=== PATIENT | male | born 1950 | race Caucasian/White ===

== ENCOUNTER 2018-01-24 06:34 | Inpatient (IN) ==
[2018-01-23 16:02] LABS: Basophils % 0.5 % (0.0-0.8); Eosinophils # 0.3 10*3/uL (0.0-0.87); Eosinophils % 4.3 % (0.00-10.9); Hematocrit 42.5 VOL% (42.0-52.0); Hemoglobin 13.5 GM/DL (14.0-18.0); Immature Granulocytes % 0.4 %; Immature Granulocytes Absolute 0.03 #; Lymphocytes # 1.5 10*3/uL (1.4-4.0); Lymphocytes % 20.5 % (21.2-54.2); Mean Corpuscular HGB Conc 31.8 GM/DL (32-36); Mean Corpuscular Hemoglobin 29 PG (27-34); Mean Corpuscular Volume 91.2 FL (87-102); Monocytes # 0.7 10*3/uL (0.11-0.8); Monocytes % 8.8 % (1.7-12.7); Neutrophils # 4.8 10*3/uL (1.4-7.4); Neutrophils % 65.5 % (38.7-73.9); Platelet Count 127 T/CUMM (130-400); Red Blood Count 4.66 MC/CUMM (3.8-5.5); Red Cell Distribution Width 13.2 % (9.3-17.3); White Blood Count 7.4 T/CUMM (4-12)
[2018-01-23 16:10] LABS: PT Patient Result 10.3 SECS
[2018-01-23 16:25] LABS: Alanine Aminotransferase 43 U/L (16-61); Albumin 3.8 G/DL (3.4-5.0); Alkaline Phosphatase 125 U/L (45-117); Aspartate Amino Transferase 55 U/L (0-37); Bilirubin,Total < 0.39 MG/DL (0.2-1.0); Blood Urea Nitrogen 19 MG/DL (7-18); Calcium 8.2 MG/DL (8.5-10.1); Glucose 86 MG/DL (74-106); Osmolality,Calculated 283.1 MOS/KG (273-304); Potassium 4.6 MMOL/L (3.5-5.1); Sodium 142 MMOL/L (136-145); Total Protein 7.1 G/DL (6.4-8.3)
[~2018-01-24 06:34] MED LIST: ALVIMOPAN 12 MG CAPSULE PO ONE; ERTAPENEM 1,000 MG in SODIUM CHLORIDE 0.9% 100 ML IV ONE
[2018-01-24] MEDS ORDERED: ALVIMOPAN 12 MG CAPSULE ONE (06:56)
[2018-01-24] MEDS ORDERED: FAMOTIDINE 20 MG TABLET PO ONE (07:05)
[2018-01-24] MEDS ORDERED: FAMOTIDINE 20 MG TABLET ONE (07:18)
[2018-01-24] MEDS ORDERED: LACTATED RINGERS 1,000 ML IV SCH (07:30)
[2018-01-24] MEDS ORDERED: TISSUE ADHESIVE 1 EACH APPLICATOR TOP ONE (08:21)
[2018-01-24] MEDS ORDERED: SUGAMMADEX 200 MG/2 ML VIAL IV ONE (10:01)
[2018-01-24] MEDS ORDERED: PROPOFOL 200 MG/20 ML VIAL IV ONE (11:10)
[2018-01-24] MEDS ORDERED: SEVOFLURANE 1 UNIT/15 MINUTE INH ONE (11:10)
[2018-01-24] MEDS ORDERED: MIDAZOLAM 2 MG/2 ML VIAL ONE (11:10)
[2018-01-24] MEDS ORDERED: GLYCOPYRROLATE 0.4 MG/2 ML VIAL ONE (11:11)
[2018-01-24] MEDS ORDERED: ONDANSETRON 4 MG/2 ML VIAL ONE (11:11)
[2018-01-24] MEDS ORDERED: KETOROLAC 30 MG/1 ML VIAL ONE (11:11)
[2018-01-24] MEDS ORDERED: DEXAMETHASONE 10 MG/1 ML VIAL ONE (11:11)
[2018-01-24] MEDS ORDERED: ePHEDrine 50 MG/ML AMP ONE (11:11)
[2018-01-24] MEDS ORDERED: PHENYLEPHRINE 1 MG/10 ML SYRINGE IV ONE (11:12)
[2018-01-24] MEDS ORDERED: LACTATED RINGERS 1,000 ML IV ONE (11:12)
[2018-01-24] MEDS ORDERED: ACETAMINOPHEN 1,000 MG/100 ML VIAL IV ONE (11:12)
[2018-01-24] MEDS ORDERED: ROCURONIUM 100 MG/10 ML VIAL IV ONE (11:12)
[2018-01-24] MEDS ORDERED: NEOSTIGMINE 10 MG/10 ML VIAL ONE (11:12)
[2018-01-24] MEDS ORDERED: CYANOCOBALAMIN 1000 MCG/1 ML VIAL SUBCUT SCH (11:57)
[2018-01-24] MEDS ORDERED: PROMETHAZINE 25 MG/1 ML VIAL IM PRN (11:57)
[2018-01-24] MEDS ORDERED: ERYTHROMYCIN BASE 500 MG PO SCH (11:57)
[2018-01-24] MEDS ORDERED: HYDROmorphone 2 MG/1 ML VIAL IV PRN (11:57)
[2018-01-24] MEDS: LACTATED RINGERS 1,000 ML IV SCH ×2 (12:36→21:38)
[2018-01-24] MEDS: KETOROLAC 15 MG/1 ML VIAL IV SCH ×3 (12:38→23:40)
[2018-01-24 14:00] LABS: Basophils % 0.2 % (0.0-0.8); Eosinophils % 0.1 % (0.00-10.9); Hemoglobin 13.5 GM/DL (14.0-18.0); Immature Granulocytes % 0.5 %; Immature Granulocytes Absolute 0.07 #; Lymphocytes # 0.5 10*3/uL (1.4-4.0); Mean Corpuscular HGB Conc 32.1 GM/DL (32-36); Mean Corpuscular Hemoglobin 29 PG (27-34); Mean Corpuscular Volume 90.7 FL (87-102); Mean Platelet Volume 12.4 FL (9.6-12.0); Monocytes # 0.3 10*3/uL (0.11-0.8); Neutrophils # 14.5 10*3/uL (1.4-7.4); Neutrophils % 94.2 % (38.7-73.9); Platelet Count 185 T/CUMM (130-400); Red Blood Count 4.63 MC/CUMM (3.8-5.5); Red Cell Distribution Width 13.3 % (9.3-17.3); White Blood Count 15.4 T/CUMM (4-12)
[2018-01-24 14:15] LABS: Calcium 8.4 MG/DL (8.5-10.1); Potassium 4.4 MMOL/L (3.5-5.1)
[2018-01-24] MEDS ORDERED: hydrALAZINE 20 MG/1 ML VIAL IV PRN (14:33)
[2018-01-24 14:45] LABS: Lymphocytes 4 % (20-55); Platelet Estimate Adequate; Segmented Neutrophils 95 % (50-85); Total Cells Counted 100
[2018-01-24] MEDS: FLUTICASONE 50 MCG NASAL SPRAY 16 GM BOTTLE BOTH NARES SCH (21:35)
[2018-01-24] MEDS: ALVIMOPAN 12 MG CAPSULE PO SCH (21:38)
[2018-01-25 02:48] LABS: Basophils % 0.1 % (0.0-0.8); Hematocrit 35.6 VOL% (42.0-52.0); Hemoglobin 11.6 GM/DL (14.0-18.0); Immature Granulocytes % 0.8 %; Immature Granulocytes Absolute 0.12 #; Lymphocytes # 0.5 10*3/uL (1.4-4.0); Lymphocytes % 3.6 % (21.2-54.2); Mean Corpuscular HGB Conc 32.6 GM/DL (32-36); Mean Corpuscular Hemoglobin 29 PG (27-34); Mean Corpuscular Volume 89.4 FL (87-102); Mean Platelet Volume 11.7 FL (9.6-12.0); Monocytes # 0.7 10*3/uL (0.11-0.8); Monocytes % 4.6 % (1.7-12.7); Neutrophils # 13.6 10*3/uL (1.4-7.4); Neutrophils % 90.9 % (38.7-73.9); Platelet Count 246 T/CUMM (130-400); Red Blood Count 3.98 MC/CUMM (3.8-5.5); Red Cell Distribution Width 13.2 % (9.3-17.3)
[2018-01-25] MEDS: LACTATED RINGERS 1,000 ML IV SCH ×2 (03:39→12:01)
[2018-01-25 04:09] LABS: Calcium 8.2 MG/DL (8.5-10.1); Potassium 4.5 MMOL/L (3.5-5.1)
[2018-01-25 05:35] LABS: Band Neutrophils 1 % (0-10); Lymphocytes 5 % (20-55); Segmented Neutrophils 91 % (50-85); Total Cells Counted 100
[2018-01-25 05:37] LABS: Hypochromasia 1+; Microcytosis Slight; Platelet Estimate Normal
[2018-01-25 05:38] LABS: Giant Platelets Few
[2018-01-25] MEDS: KETOROLAC 15 MG/1 ML VIAL IV SCH ×4 (05:40→23:41)
[2018-01-25] MEDS: ALVIMOPAN 12 MG CAPSULE PO SCH ×2 (10:35→20:43)
[2018-01-25] MEDS: ERYTHROMYCIN BASE 250 MG TABLET PO SCH (10:36)
[2018-01-25] MEDS: FLUTICASONE 50 MCG NASAL SPRAY 16 GM BOTTLE BOTH NARES SCH ×2 (10:38→20:43)
[2018-01-25] MEDS: ENOXAPARIN 40 MG/0.4 ML SYRINGE SUBCUT SCH (10:39)
[2018-01-25] MEDS: ONDANSETRON 4 MG/2 ML VIAL IV PRN (10:45)
[2018-01-25] MEDS: MONTELUKAST 10 MG TABLET PO SCH (10:48)
[2018-01-25] MEDS: PANTOPRAZOLE 40 MG TABLET PO SCH (10:48)
[2018-01-25] MEDS: METOPROLOL SUCCINATE XL 25 MG TABLET PO SCH (17:17)
[2018-01-26 03:52] LABS: Basophils % 0.1 % (0.0-0.8); Hematocrit 32.9 VOL% (42.0-52.0); Hemoglobin 10.7 GM/DL (14.0-18.0); Immature Granulocytes % 0.6 %; Immature Granulocytes Absolute 0.09 #; Lymphocytes # 1.1 10*3/uL (1.4-4.0); Lymphocytes % 8.2 % (21.2-54.2); Mean Corpuscular HGB Conc 32.5 GM/DL (32-36); Mean Corpuscular Hemoglobin 29 PG (27-34); Mean Corpuscular Volume 88.9 FL (87-102); Monocytes # 1.2 10*3/uL (0.11-0.8); Monocytes % 8.3 % (1.7-12.7); Neutrophils # 11.5 10*3/uL (1.4-7.4); Neutrophils % 82.8 % (38.7-73.9); Platelet Count 231 T/CUMM (130-400); Red Cell Distribution Width 13.9 % (9.3-17.3); White Blood Count 13.9 T/CUMM (4-12)
[2018-01-26] MEDS: KETOROLAC 15 MG/1 ML VIAL IV SCH ×4 (05:40→23:15)
[2018-01-26] MEDS: MONTELUKAST 10 MG TABLET PO SCH (09:57)
[2018-01-26] MEDS: METOPROLOL SUCCINATE XL 25 MG TABLET PO SCH (09:57)
[2018-01-26] MEDS: ALVIMOPAN 12 MG CAPSULE PO SCH ×2 (09:58→20:58)
[2018-01-26] MEDS: PANTOPRAZOLE 40 MG TABLET PO SCH (09:58)
[2018-01-26] MEDS: ERYTHROMYCIN BASE 250 MG TABLET PO SCH (09:59)
[2018-01-26] MEDS: FLUTICASONE 50 MCG NASAL SPRAY 16 GM BOTTLE BOTH NARES SCH ×2 (10:05→20:59)
[2018-01-26] MEDS: ENOXAPARIN 40 MG/0.4 ML SYRINGE SUBCUT SCH (10:06)
[2018-01-26 12:30] LABS: Hematocrit 32.6 VOL% (42.0-52.0); Hemoglobin 10.3 GM/DL (14.0-18.0)
[2018-01-26] MEDS: ONDANSETRON 4 MG/2 ML VIAL IV PRN ×2 (13:35→18:19)
[2018-01-27 00:55] LABS: Basophils % 0.2 % (0.0-0.8); Eosinophils # 0.2 10*3/uL (0.0-0.87); Eosinophils % 1.3 % (0.00-10.9); Hematocrit 30.7 VOL% (42.0-52.0); Hemoglobin 10.2 GM/DL (14.0-18.0); Immature Granulocytes % 0.5 %; Immature Granulocytes Absolute 0.06 #; Lymphocytes # 1.3 10*3/uL (1.4-4.0); Mean Corpuscular HGB Conc 33.2 GM/DL (32-36); Mean Corpuscular Hemoglobin 30 PG (27-34); Mean Corpuscular Volume 89.2 FL (87-102); Mean Platelet Volume 11.5 FL (9.6-12.0); Monocytes # 1.2 10*3/uL (0.11-0.8); Monocytes % 10.4 % (1.7-12.7); Neutrophils # 9.1 10*3/uL (1.4-7.4); Neutrophils % 76.6 % (38.7-73.9); Platelet Count 202 T/CUMM (130-400); Red Blood Count 3.44 MC/CUMM (3.8-5.5); Red Cell Distribution Width 14.1 % (9.3-17.3); White Blood Count 11.9 T/CUMM (4-12)
[2018-01-27] MEDS: KETOROLAC 15 MG/1 ML VIAL IV SCH (05:34)
[2018-01-27 07:05] VITALS: BP 161/96
[2018-01-27] MEDS: PANTOPRAZOLE 40 MG TABLET PO SCH (08:22)
[2018-01-27] MEDS: ERYTHROMYCIN BASE 250 MG TABLET PO SCH (08:22)
[2018-01-27] MEDS: ENOXAPARIN 40 MG/0.4 ML SYRINGE SUBCUT SCH (08:22)
[2018-01-27] MEDS: ALVIMOPAN 12 MG CAPSULE PO SCH (08:23)
[2018-01-27] MEDS: METOPROLOL SUCCINATE XL 25 MG TABLET PO SCH (08:23)
[2018-01-27] MEDS: FLUTICASONE 50 MCG NASAL SPRAY 16 GM BOTTLE BOTH NARES SCH (08:23)
[2018-01-27] MEDS: MONTELUKAST 10 MG TABLET PO SCH (08:23)
== END 2018-01-27 11:20 | disposition home or self-care (01) | DRG 331 ==
LOC: N.OR 06:34 → N.SDSINP 06:40 → N.3E 10:47
PROVIDERS: ADMIT Surgery; ATTEND Surgery

== ENCOUNTER 2021-11-06 10:52 | Inpatient (IN) ==
[2021-11-06] MEDS ORDERED: ACETAMINOPHEN 325 MG TABLET PO PRN (11:09)
[2021-11-06] MEDS ORDERED: ONDANSETRON 4 MG/2 ML VIAL IV PRN (11:09)
[2021-11-06] MEDS ORDERED: SODIUM CHLORIDE 0.9% 1,000 ML IV PRN (11:12)
[2021-11-06 13:35] LABS: % Iron Saturation 5.8 % (18-50); Ferritin 31.1 ng/mL (26-388)
[2021-11-06] MEDS: PANTOPRAZOLE 40 MG TABLET PO SCH (13:48)
[2021-11-06] MEDS ORDERED: diphenhydrAMINE CAP 25 MG CAPSULE PO PRN (15:14)
[2021-11-06] MEDS ORDERED: OXYMETAZOLINE 0.05% NASAL SPRAY 15 ML BOTTLE BOTH NARES PRN (15:14)
[2021-11-06] MEDS ORDERED: CYANOCOBALAMIN 1000 MCG/1 ML VIAL SUBCUT SCH (15:30)
[2021-11-06] MEDS: FERROUS SULFATE 325 MG TABLET PO SCH (18:24)
[2021-11-06] MEDS ORDERED: FUROSEMIDE 40 MG/4 ML VIAL IV ONE (18:26)
[2021-11-06] MEDS: FLUTICASONE 50 MCG NASAL SPRAY 16 GM BOTTLE BOTH NARES SCH (20:53)
[2021-11-06] MEDS: CLOBETASOL 0.05% CREAM 15 GM TUBE TOP SCH (20:54)
[2021-11-06] MEDS: DOCUSATE SODIUM 100 MG CAPSULE PO SCH (20:54)
[2021-11-06] MEDS: CICLOPIROX 0.77% TOP SCH (20:55)
[2021-11-06 22:33] LABS: Hemoglobin 8.8 GM/DL (14.0-18.0)
[2021-11-07 07:16] LABS: Albumin 3.3 G/DL (3.4-5.0); Bilirubin,Total 0.6 MG/DL (0.20-1.00); Calcium 8.5 MG/DL (8.5-10.1); Potassium 3.8 MMOL/L (3.5-5.1); Total Protein 6.5 G/DL (6.4-8.2)
[2021-11-07 08:08] LABS: Basophils # 0.1 10*3/uL (0.0-0.2); Basophils % 0.6 % (0.0-0.8); Eosinophils # 0.6 10*3/uL (0.0-0.87); Eosinophils % 5.4 % (0.00-10.9); Hematocrit 28.8 VOL% (42.0-52.0); Hemoglobin 8.7 GM/DL (14.0-18.0); Immature Granulocytes % 0.6 %; Immature Granulocytes Absolute 0.06 #; Lymphocytes # 1.6 10*3/uL (1.4-4.0); Lymphocytes % 15.4 % (21.2-54.2); Mean Corpuscular HGB Conc 30.2 GM/DL (32-36); Mean Corpuscular Volume 84.2 FL (87-102); Mean Platelet Volume 9.6 FL (9.6-12.0); Monocytes % 9.3 % (1.7-12.7); Neutrophils % 68.7 % (38.7-73.9); Platelet Count 414 T/CUMM (130-400); Red Blood Count 3.42 MC/CUMM (3.8-5.5); Red Cell Distribution Width 16.9 % (9.3-17.3); White Blood Count 10.6 T/CUMM (4-12)
[2021-11-07] MEDS: LACTATED RINGERS 1,000 ML IV SCH (12:45)
[2021-11-07] MEDS ORDERED: propofoL 200 MG/20 ML VIAL IV ONE (13:48)
[2021-11-07] MEDS ORDERED: LIDOCAINE 2% 5 ML VIAL ONE (13:48)
[2021-11-07] MEDS: FLUTICASONE 50 MCG NASAL SPRAY 16 GM BOTTLE BOTH NARES SCH ×2 (15:00→20:39)
[2021-11-07] MEDS: FERROUS SULFATE 325 MG TABLET PO SCH ×2 (15:01→17:30)
[2021-11-07] MEDS: MONTELUKAST 10 MG TABLET PO SCH (15:01)
[2021-11-07] MEDS: PANTOPRAZOLE 40 MG TABLET PO SCH (15:01)
[2021-11-07] MEDS: TERBINAFINE 250 MG TABLET PO SCH (15:01)
[2021-11-07] MEDS: LORATADINE 10 MG TABLET PO SCH (15:01)
[2021-11-07] MEDS: CITALOPRAM 20 MG TABLET PO SCH (15:01)
[2021-11-07] MEDS: METOPROLOL SUCCINATE XL 25 MG TABLET PO SCH (15:01)
[2021-11-07] MEDS: CLOBETASOL 0.05% CREAM 15 GM TUBE TOP SCH ×2 (15:01→20:40)
[2021-11-07] MEDS: DOCUSATE SODIUM 100 MG CAPSULE PO SCH ×2 (15:01→20:39)
[2021-11-07] MEDS: CICLOPIROX 0.77% TOP SCH ×2 (15:02→20:40)
[2021-11-08 04:29] LABS: Basophils % 0.5 % (0.0-0.8); Eosinophils # 0.5 10*3/uL (0.0-0.87); Eosinophils % 5.7 % (0.00-10.9); Hematocrit 28.9 VOL% (42.0-52.0); Hemoglobin 8.6 GM/DL (14.0-18.0); Immature Granulocytes % 0.6 %; Immature Granulocytes Absolute 0.05 #; Lymphocytes % 12.8 % (21.2-54.2); Mean Corpuscular HGB Conc 29.8 GM/DL (32-36); Mean Platelet Volume 9.8 FL (9.6-12.0); Monocytes % 9.4 % (1.7-12.7); Platelet Count 392 T/CUMM (130-400); Red Cell Distribution Width 17.7 % (9.3-17.3); White Blood Count 7.9 T/CUMM (4-12)
[2021-11-08 04:55] LABS: Albumin 3.1 G/DL (3.4-5.0); Bilirubin,Total 0.6 MG/DL (0.20-1.00); Calcium 8.1 MG/DL (8.5-10.1); Osmolality,Calculated 281.4 MOS/KG (273-304); Total Protein 6.1 G/DL (6.4-8.2)
[2021-11-08] MEDS: MONTELUKAST 10 MG TABLET PO SCH (09:54)
[2021-11-08] MEDS: CITALOPRAM 20 MG TABLET PO SCH (09:54)
[2021-11-08] MEDS: PANTOPRAZOLE 40 MG TABLET PO SCH (09:54)
[2021-11-08] MEDS: DOCUSATE SODIUM 100 MG CAPSULE PO SCH ×2 (09:54→20:05)
[2021-11-08] MEDS: METOPROLOL SUCCINATE XL 25 MG TABLET PO SCH (09:54)
[2021-11-08] MEDS: FERROUS SULFATE 325 MG TABLET PO SCH ×2 (09:55→19:37)
[2021-11-08] MEDS: LORATADINE 10 MG TABLET PO SCH (09:55)
[2021-11-08] MEDS: TERBINAFINE 250 MG TABLET PO SCH (09:55)
[2021-11-08] MEDS: CICLOPIROX 0.77% TOP SCH ×2 (17:25→20:05)
[2021-11-08] MEDS: CLOBETASOL 0.05% CREAM 15 GM TUBE TOP SCH ×2 (18:45→20:06)
[2021-11-08] MEDS: FLUTICASONE 50 MCG NASAL SPRAY 16 GM BOTTLE BOTH NARES SCH ×2 (18:45→20:05)
[2021-11-08] MEDS: LACTATED RINGERS 1,000 ML IV SCH (18:45)
[2021-11-09 05:04] LABS: Basophils % 0.4 % (0.0-0.8); Eosinophils # 0.6 10*3/uL (0.0-0.87); Eosinophils % 5.2 % (0.00-10.9); Hematocrit 32.7 VOL% (42.0-52.0); Hemoglobin 9.6 GM/DL (14.0-18.0); Immature Granulocytes % 0.3 %; Immature Granulocytes Absolute 0.03 #; Lymphocytes # 1.8 10*3/uL (1.4-4.0); Lymphocytes % 16.2 % (21.2-54.2); Mean Corpuscular HGB Conc 29.4 GM/DL (32-36); Mean Platelet Volume 9.9 FL (9.6-12.0); Monocytes % 9.7 % (1.7-12.7); Neutrophils % 68.2 % (38.7-73.9); Platelet Count 430 T/CUMM (130-400); Red Blood Count 3.76 MC/CUMM (3.8-5.5); Red Cell Distribution Width 18.1 % (9.3-17.3); White Blood Count 10.9 T/CUMM (4-12)
[2021-11-09 05:33] LABS: Albumin 3.4 G/DL (3.4-5.0); Bilirubin,Total 0.4 MG/DL (0.20-1.00); Calcium 8.5 MG/DL (8.5-10.1); Osmolality,Calculated 277.5 MOS/KG (273-304); Potassium 3.9 MMOL/L (3.5-5.1); Total Protein 6.9 G/DL (6.4-8.2)
[2021-11-09 07:50] VITALS: BP 154/82
[2021-11-09] MEDS: DOCUSATE SODIUM 100 MG CAPSULE PO SCH (08:53)
[2021-11-09] MEDS: TERBINAFINE 250 MG TABLET PO SCH (08:53)
[2021-11-09] MEDS: METOPROLOL SUCCINATE XL 25 MG TABLET PO SCH (08:53)
[2021-11-09] MEDS: FERROUS SULFATE 325 MG TABLET PO SCH (08:53)
[2021-11-09] MEDS: PANTOPRAZOLE 40 MG TABLET PO SCH (08:53)
[2021-11-09] MEDS: MONTELUKAST 10 MG TABLET PO SCH (08:53)
[2021-11-09] MEDS: CITALOPRAM 20 MG TABLET PO SCH (08:53)
[2021-11-09] MEDS: LORATADINE 10 MG TABLET PO SCH (08:54)
[2021-11-09] MEDS: FLUTICASONE 50 MCG NASAL SPRAY 16 GM BOTTLE BOTH NARES SCH (09:44)
[2021-11-09] MEDS: CICLOPIROX 0.77% TOP SCH (09:44)
[2021-11-09] MEDS: CLOBETASOL 0.05% CREAM 15 GM TUBE TOP SCH (09:45)
== END 2021-11-09 10:05 | disposition home or self-care (01) | DRG 378 ==
LOC: N.2E 11:45 → N.TELES 11-08 17:48
PROVIDERS: ADMIT Internal Medicine; ATTEND Internal Medicine